=== PATIENT | male | born 1975 | race Caucasian/White ===

== ENCOUNTER 2019-02-01 16:42 | Emergency (ER) | payer BC ==
[~2019-02-01] VITALS: Ht 185.4 cm; Wt 91.6 kg
[2019-02-01] MEDS ORDERED: SODIUM CHLORIDE 0.9% 1000ML 1,000 ML IV SCH (17:00)
[2019-02-01] MEDS ORDERED: IOPAMIDOL 370 MG/ML 200 ML INFUS..BTL INJ ONE (17:02)
[2019-02-01] MEDS ORDERED: DIATRIZOATE MEGL/DIATRIZOA SOD 30 ML BTL PO ONE (17:02)
[2019-02-01] MEDS ORDERED: SODIUM CHLORIDE 0.9% 50ML 50 ML ONE (17:02)
--- NOTE | 2019-02-01 17:26 | NUR ---
Blood collected and sent to the lab via wwe wrestler for Lipase
[2019-02-01] MEDS ORDERED: POTASSIUM CHLORIDE 20 MEQ TAB CR PO ONE ×2 (18:13→18:21)
[2019-02-01] MEDS ORDERED: SODIUM CHLORIDE 0.9% 1000ML 1,000 ML ONE (18:22)
--- NOTE | 2019-02-01 18:26 | Diagnostic Imaging Report ---
EXAM: CT Abdomen and Pelvis WITH contrast INDICATION: Abdominal pain COMPARISON: None. TECHNIQUE: Abdomen and pelvis were scanned utilizing a multidetector helical scanner from the lung base to the pubic symphysis after administration of IV contrast. Coronal and sagittal reformations were obtained. Routine protocol was performed. Scan was performed when during portal venous phase. IV CONTRAST: 100 mL of Isovue-370 ORAL CONTRAST: Gastrografin COMPLICATIONS: None RADIATION DOSE: Total DLP: 803 mGy*cm Estimated effective dose: (DLP x 0.015 x size factor) mSv CTDIvol has been reviewed. It is below the limits set by the Radiation Protocol Committee (RPC). Dose modulation, iterative reconstruction, and/or weight based adjustment of the mA/kV was utilized to reduce the radiation dose to as low as reasonably achievable. FINDINGS: LINES and TUBES: None. LOWER THORAX: Unremarkable HEPATOBILIARY: No focal hepatic lesions. No biliary ductal dilation. GALLBLADDER: No radio-opaque stones or sludge. No wall thickening. SPLEEN: No splenomegaly. PANCREAS: No focal masses or ductal dilatation. ADRENALS: No adrenal nodules KIDNEYS/URETERS: Kidneys enhance symmetrically. No hydronephrosis. Simple appearing right renal cyst. No stones. GI TRACT: Suspected mucosal thickening involving the gastric mucosa and the ascending/transverse colon. GI consultation recommended. No abnormal distention or evidence of bowel obstruction. Appendix is normal. PELVIC ORGANS/BLADDER: Unremarkable. LYMPH NODES: No lymphadenopathy. VESSELS: Unremarkable. PERITONEUM / RETROPERITONEUM: No free air or fluid. BONES: Unremarkable. SOFT TISSUES: Unremarkable. IMPRESSION: 1. Suspected mucosal thickening involving the gastric mucosa and the ascending/transverse colon. GI consultation recommended. No abnormal distention or evidence of bowel obstruction. Appendix is normal. Signed by: Dr. Hans Walker M.D. on 02/01/2019 6:22 PM
[2019-02-01] MEDS ORDERED: NEXIUM40 MG PO (18:39)
== END 2019-02-01 19:01 | disposition home or self-care (01) ==
LOC: FSED 16:42
DX: R10.13 Epigastric pain (principal); K29.00 Acute gastritis without bleeding; K52.9 Noninfective gastroenteritis and colitis, unspecified; E87.6 Hypokalemia
CPT/HCPCS: 36415; 74177; 83690; 93005; 99284; J7030; Q9967

== ENCOUNTER 2019-08-30 18:17 | Emergency (ER) | payer BC ==
[~2019-08-30] VITALS: Ht 185.4 cm; Wt 91.6 kg
[~2019-08-30 18:17] MED LIST: NEXIUM40 MG PO
--- OUTSIDE RECORDS SUMMARY | 2019-08-30 18:19 | XMS REPORT | Continuity of Care Document ---
Author Author [facility] t Organization [facility] Address [address] [place] [address] Phone Unavailable Care Team Providers Care Machine Pie Maker Name Role Phone NERISSA CORONA PCP Edd ARMENDARIZ Attphyhannah Unavailable Payers Payer Name Policy Type Policy Number Effective Date Expiration Date Hannah tavares [facility] [id number] 2018 00:00:00 [facility] Problems This patient has no known problems. Allergies, Adverse Reactions, Alerts This patient has no known allergies or adverse reactions. Medications Ordered Medication Name Filled Medication Name Start Date Stop Da te Current Medication? Ordering Clinician Indication Dosage Frequency Signature (SIG) Comments Components Source Esomeprazole Magnesium (Nexium) 40 Mg Capsule.dr Puri prazole Magnesium (Nexium) 40 Mg Capsule. 2019-02-01 00:00:00 Yes Henrique Armendariz Md 2 0 Daily [facility] Procedures This patient has no known procedures. Encounters Start Date/Time End Date/Time Encounter Type Admission Type AttendRUST Care Department Encounter ID Source 2019-02-01 16:42:00 2019-02-01 19:01:00 Departed Emergency Room 1 HENRIQUE ARMENDARIZ [facility] [id number] [facility] Results Test Description Test Time Test Comments Results Result Comments Source Lipase 2019-02-01 18:56:00 Test Item Lipase (test code = 3040-3) 23 [id number] 18:18:00 [facility] [address] [place] [id number] Patient Name: WALI MARSH MR #: [id number] : 1975 Age/Sex: 43/M Req #: [id number] Adm Physician: Ordered by: HENRIQUE ARMENDARIZ MD Report #: [id number] Location: [facility] Room/Bed: Procedure: 1114- 0003 HOPD/CT ABD/PEL WITH CONTRAST-HOPD Exam Date: 02/01/19 Exam Time: 1811 REPORT STAT US: Signed EXAM: CT Abdomen and Pelvis WITH contrast INDICATION: Abdomina l pain COMPARISON: None. TECHNIQUE: Abdomen and pelvis were scanned ut ilizing a multidetector helical scanner from the lung base to the pubic symphy sis after administration of IV contrast. Coronal and sagittal reformations wer e obtained. Routine protocol was performed. Scan was performed when during por sixto venous phase. IV CONTRAST: 100 mL of Isovue-370 ORAL CONTR AST: Gastrografin COMPLICATIONS: None RADIATION DOSE: Total DLP: 803 mGy*cm Estimated effective dose: (DLP x 0.015 x size fa ctor) mSv CTDIvol has been reviewed. It is below the limits set by the [facility] Protocol Committee (RPC). Dose modulation, iterative reconstruc tion, and/or weight based adjustment of the mA/kV was utilized to reduce the r adiation dose to as low as reasonably achievable. FINDINGS: LINES a nd TUBES: None. LOWER THORAX: Unremarkable HEPATOBILIARY: No foc al hepatic lesions. No biliary ductal dilation. GALLBLADDER: No radio-opaq ue stones or sludge. No wall thickening. SPLEEN: No splenomegaly. PA NCREAS: No focal masses or ductal dilatation. ADRENALS: No adrenal nodule s KIDNEYS/URETERS: Kidneys enhance symmetrically. No hydronephrosis. S imple appearing right renal cyst. No stones. GI TRACT: Suspected mucosal thickening involving the gastric mucosa and the ascending/transverse colon. GI consultation recommended. No abnormal distention or evidence of bowel obstru ction. Appendix is normal. PELVIC ORGANS/BLADDER: Unremarkable. LYMPH NODES: No lymphadenopathy. VESSELS: Unremarkable. PERITONEUM / R ETROPERITONEUM: No free air or fluid. BONES: Unremarkable. SOFT TISSUE S: Unremarkable. IMPRESSION: 1. Suspected mucosal thickenin g involving the gastric mucosa and the ascending/transverse colon. GI consulta tion recommended. No abnormal distention or evidence of bowel obstruction. Appendix is normal. Signed by: Dr. Hans Walker M.D. on 02/01/2019 6:22 PM Dictated By: HANS WALKER MD, MD 21 Transcribed By: EVELYN on 02/01/191821 COPY TO: HENRIQUE ARMENDARIZ MD
--- NOTE | 2019-08-30 19:32 | Diagnostic Imaging Report ---
EXAM: CHEST SINGLE (PORTABLE) DATE: 08/30/2019 7:15 PM INDICATION: ^Y ^COUGH, FEVER ^[id number] ^1914 COMPARISON: None FINDINGS: Lines and tubes: None Heart size normal. No focal pulmonary opacity, pleural effusion or pneumothorax. Upper abdomen unremarkable. No acute bony abnormality. IMPRESSION: No evidence for acute disease. Signed by: Dr. Germán Tolbert M.D. on 08/30/2019 7:29 PM
--- NOTE | 2019-08-30 19:40 | Emergency Department Note ---
History of Present Illnes History of Present Illness Chief Complaint: COVID PUI History of Present Illness This is a 44 year old male PATIENT IN FROM HOME WITH COMPLAINTS OF FEVER, COUGH, NAUSEA, DIARRHEA, AND WEAKNESS X 3 DAYS; PATIENT ALERT AND ORIENTED, RESP EVEN AND NONLABORED, APPEARS IN NO DSITRESS, AMBULATORY WITHOUT ASSISTANCE. Historian: Patient Arrival Mode: Car Cartridge Maker Required: No Onset (how long ago): day(s) (3) Radiation: Reports non-radiation Severity: moderate Onset quality: gradual Timing of current episode: constant Progression: waxing and waning Chronicity: new Context: Denies recent illness Relieving factors: none Exacerbating factors: none Associated symptoms: Reports denies other symptoms Treatments prior to arrival: none Past Medical/Family History Physician Review I have reviewed the patient's past medical and family history. Any updates have been documented here. Past Medical History Recent Fever: Yes Clinical Suspicion of Infectio: Yes New/Unexplained Change in Ment: No Past Medical History: GERD Other Surgery: UP, Social History Smoking Cessation: Never Smoker Counseling Performed: No Alcohol Use: Occasional Any Illegal Drug Use: No TB Exposure/Symptoms: No Physically hurt or threatened: No Family History Family history of heart diseas: No Other Last Tetanus: utd Any Pre-Existing Lines (PICC,: No Is patient up to date on immun: Yes Last Flu: UTD Last Pneumovax: NA Review of Systems Review of Systems Constitutional: Reports chills, Reports fever EENTM: Reports no symptoms Cardiovascular: Reports no symptoms Respiratory: Reports as per HPI Gastrointestinal: Reports no symptoms Genitourinary: Reports no symptoms Musculoskeletal: Reports no symptoms Integumentary: Reports no symptoms Neurological: Reports no symptoms Psychological: Reports no symptoms Endocrine: Reports no symptoms Hematological/Lymphatic: Reports no symptoms Physical Exam Related Data Allergies: Coded Allergies: No Known Allergies (Unverified , 08/30/19) Triage Vital Signs Vital Signs Date Time Temp Pulse Resp B/P (MAP) Pulse Ox O2 Delivery O2 Flow Rate FiO2 08/30/19 18:18 98.7 87 18 158/105 100 Vital signs reviewed: Yes Physical Exam CONSTITUTIONAL Constitutional: Reports well-developed, Reports well-nourished HENT HENT: Reports normocephalic, Reports atraumatic, Reports oropharynx clear/moist, Reports nose normal HENT L/R: Reports left ext ear normal, Reports right ext ear normal EYES Eyes: Reports PERRL, Reports conjunctivae normal NECK Neck: Reports ROM normal PULMONARY Pulmonary: Reports other (MILD DECREASED BS THROUGHOUT) CARDIOVASCULAR Cardiovascular: Reports regular rhythm, Reports heart sounds normal, Reports capillary refill normal, Reports normal rate GASTROINTESTINAL Abdominal: Reports soft, Reports nontender, Reports bowel sounds normal GENITOURINARY Genitourinary: Reports exam deferred SKIN Skin: Reports warm, Reports dry MUSCULOSKELETAL Musculoskeletal: Reports ROM normal NEUROLOGICAL Neurological: Reports alert, Reports oriented x 3, Reports no gross motor or sensory deficits PSYCHOLOGICAL Psychological: Reports mood/affect normal, Reports judgement normal Results Laboratory Laboratory Laboratory Tests Test 08/30/19 18:48 Imaging Imaging results reviewed: Yes Impressions EXAM: CHEST SINGLE (PORTABLE) DATE: 08/30/2019 7:15 PM INDICATION: ^Y ^COUGH, FEVER ^[id number] ^1914 COMPARISON: None FINDINGS: Lines and tubes: None Heart size normal. No focal pulmonary opacity, pleural effusion or pneumothorax. Upper abdomen unremarkable. No acute bony abnormality. IMPRESSION: No evidence for acute disease. Signed by: Dr. Germán Tolbert M.D. on 08/30/2019 7:29 PM Assessment & Plan Medical Decision Making MDM CXR R/O PNEUMONIA, COVID TEST R/O COVID19 Reassessment Reassessment DC HOME, SELF-QUARANTINE, PRONING, F/U PCP Assessment & Plan Final Impression: (1) Bronchitis Depart Disposition: HOME, SELF-CARE Last Vital Signs Date Time Temp Pulse Resp B/P (MAP) Pulse Ox O2 Delivery O2 Flow Rate FiO2 08/30/19 18:18 98.7 87 18 158/105 100 Home Meds Active Scripts Esomeprazole Magnesium (NEXIUM) 40 Mg Capsule., 20 MG PO DAILY for 30 Days, #30 Prov:TEJA VILLELA MD 02/01/19 MECRED PILLAI MD Aug 30, 2019 19:40
[2019-08-30 19:48] VITALS: BP 147/66
== END 2019-08-30 19:55 | disposition home or self-care (01) ==
LOC: ER 18:17
DX: R50.9 Fever, unspecified (principal); R05 Cough; R53.1 Weakness; J40 Bronchitis, not specified as acute or chronic; U07.1 COVID-19; K21.9 Gastro-esophageal reflux disease without esophagitis
CPT/HCPCS: 71045; 87635; 99283

== ENCOUNTER 2021-03-09 11:05 | Emergency (ER) | payer BC, OTHER ==
[~2021-03-09] VITALS: Ht 185.4 cm; Wt 90.7 kg
[2021-03-09] MEDS ORDERED: SODIUM CHLORIDE 0.9% 50ML 50 ML ONE (11:49)
[2021-03-09] MEDS ORDERED: DIATRIZOATE MEGL/DIATRIZOA SOD 30 ML BTL PO ONE (11:49)
[2021-03-09] MEDS ORDERED: IOPAMIDOL 370 MG/ML 200 ML INFUS..BTL INJ ONE (11:49)
== END 2021-03-09 13:55 | disposition home or self-care (01) ==
LOC: FSED 11:15
DX: R10.32 Left lower quadrant pain (principal); K40.90 Unilateral inguinal hernia, without obstruction or gangrene, not specified as recurrent; K21.9 Gastro-esophageal reflux disease without esophagitis
CPT/HCPCS: 74177; 80053; 85025; 99282; Q9967

== ENCOUNTER → 2021-04-17 | Day surgery (SDC) | payer OTHER ==
[2021-04-15 14:01] LABS: BASOPHILS # (AUTO) 0.1 (0.0-0.1); BASOPHILS % 1.6 % (0.0-1.0); EOSINOPHILS # (AUTO) 0.2 (0.0-0.4); EOSINOPHILS % 3.1 % (0.0-6.0); HEMATOCRIT 45.5 % (38.2-49.6); LYMPHOCYTES # (AUTO) 1.4 (1.0-3.2); LYMPHOCYTES % 28.8 % (18.0-39.1); MEAN CORPUSCULAR HEMOGLOBIN 32.4 pg (28-32); MEAN CORPUSCULAR VOLUME 98.3 fL (81-99); MONOCYTES # (AUTO) 0.9 (0.2-0.8); MONOCYTES % 18.2 % (4.4-11.3); NEUTROPHILS # (AUTO) 2.4 (2.1-6.9); NEUTROPHILS % 48.1 % (38.7-80.0); PLATELET COUNT 263 x10e3/uL (140-360); RED BLOOD COUNT 4.63 x10e6/uL (4.3-5.7); RED CELL DISTRIBUTION WIDTH 12.1 % (11.7-14.4)
[2021-04-15 14:31] LABS: ANION GAP 15.8 mmol/L (8-16); CALCIUM 9.4 mg/dL (8.4-10.2); CREATININE, SERUM 0.93 mg/dL (0.72-1.25); POTASSIUM 3.8 mmol/L (3.5-5.1)
[~2021-04-17] MED LIST changes: +ACETAMINOPHEN 1000 MG/100 ML 100 ML IV ONE; +ADDERALL XR 2525 MG PO; +BUPIVACAINE 0.25% 30ML SDV ONE; +DEXAMETHASONE SOD PHOS INJ 4 MG/ML SDV ONE; +FENTANYL CITRATE/PF 100MCG/2 ML INJ ONE; +HYDROCODONE/APAP 7.5MG-325MG 1 EA TAB ONE; +KETOROLAC TROMETHAMINE 30 MG/ML VIAL ONE; +LIDOCAINE 2%/ EPINEPHRINE 20ML MDV ONE; +LIDOCAINE HCL 2% LOCAL INJ 5 ML SDV VIAL INJ ONE; +MIDAZOLAM HCL 2 MG/2 ML VIAL ONE; +NEXIUM20 MG PO; +OMEPRAZOLE20 MG PO; +ONDANSETRON HCL INJ 2MG/ML 2ML 2 MG/ML VIAL ONE; +POVIDONE IODINE 0.05% 0.05 % ML PO ONE; +PROPOFOL IV EMULSION 10 MG/ML 20 ML VIAL ONE; +SEVOFLURANE INHAL SOLN 250 ML PEN BTL ONE; +XANAX0.5 MG PO
[2021-04-17 16:00] VITALS: BP 148/80
== END | disposition home or self-care (01) ==
LOC: OR 10:04
PROVIDERS: ATTEND Surgery
DX: K40.90 Unilateral inguinal hernia, without obstruction or gangrene, not specified as recurrent (principal); K21.9 Gastro-esophageal reflux disease without esophagitis; F90.9 Attention-deficit hyperactivity disorder, unspecified type; F41.9 Anxiety disorder, unspecified; Z01.810 Encounter for preprocedural cardiovascular examination; Z01.812 Encounter for preprocedural laboratory examination; Z20.822 Contact with and (suspected) exposure to COVID-19; Z79.899 Other long term (current) drug therapy
CPT/HCPCS: 36415; 49505; 80048; 85025; 93005; C1781; J0131; J1100; J1885; J2001 ×2; J2250; J2405; J2704; J3010; U0002